=== PATIENT | male | born 1980 | race African-American/Black ===

== ENCOUNTER 2021-10-29 18:59 | Emergency (ER) | payer SELFPAY ==
[~2021-10-29] VITALS: Ht 170.2 cm; Wt 93.9 kg
[2021-10-29] MEDS ORDERED: IBUPROFEN 600 MG TAB PO STA (19:14)
== END 2021-10-29 20:17 | disposition home or self-care (01) ==
LOC: ER 19:59
DX: U07.1 COVID-19 (principal); R50.9 Fever, unspecified; R52 Pain, unspecified; F31.9 Bipolar disorder, unspecified
CPT/HCPCS: 99282; U0002

== ENCOUNTER 2021-10-30 14:26 | Emergency (ER) | payer SELFPAY ==
[~2021-10-30] VITALS: Ht 170.2 cm; Wt 93.9 kg
[2021-10-30] MEDS ORDERED: IBUPROFEN 600 MG TAB PO STA (14:43)
[2021-10-30] MEDS ORDERED: ACETAMINOPHEN 325 MG TAB PO ONE (14:45)
== END 2021-10-30 15:17 | disposition home or self-care (01) ==
LOC: ER 14:35
DX: U07.1 COVID-19 (principal); R50.9 Fever, unspecified; R05.9 Cough, unspecified; F31.9 Bipolar disorder, unspecified
CPT/HCPCS: 99282